=== PATIENT | male | born 1965 | race Caucasian/White ===

== ENCOUNTER 2020-01-11 14:42 | Inpatient (IN) ==
[2020-01-11] MEDS ORDERED: Ondansetron ODT 4 MG TAB.RAPDIS SL ONE (15:05)
[2020-01-11 15:21] LABS: Basophils % 0.5 %; Eosinophils % 0.1 %; Hematocrit 40.4 % (37.5-50.1); Hemoglobin 14.1 g/dL (12.9-16.9); Immature Granulocytes % 0.2 % (0-4); Lymphocytes # 3.1 K/mcL (0.6-4.6); Lymphocytes % 35.3 %; Mean Corpuscular HGB Conc 34.9 g/dL (31.6-35.5); Mean Corpuscular Hemoglobin 28.8 pg (28.0-33.3); Mean Corpuscular Volume 82.6 fL (83.0-100.0); Mean Platelet Volume 9.7 fL (9.4-12.4); Monocytes # 1.1 K/mcL (0.0-1.3); Monocytes % 11.9 %; Neutrophils # 4.6 K/mcL (1.6-8.9); Platelet Count 257 K/mcL (140-400); Red Blood Count 4.89 M/mcL (4.19-5.50); Red Cell Distribution Width 12.2 % (11.5-14.5); White Blood Count 8.8 K/mcL (4.3-11.1)
[2020-01-11 15:50] LABS: Acetaminophen < 10 mcg/mL (10-20); BUN/Creatinine Ratio 15 (6-26); Blood Urea Nitrogen 15 mg/dL (6-20); Calcium 10.1 mg/dL (8.6-10.3); Carbon Dioxide 20 mEq/L (23-29); Chloride 103 mEq/L (98-107); Ethanol < 10 mg/dL (Less than 10); Glucose 110 mg/dL (70-105); Osmolality,Calculated 287 (280-300); Potassium 3.3 mEq/L (3.5-5.1); Salicylate < 2.5 mg/dL (15.0-30.0); Sodium 138 mEq/L (136-145); eGFR For African Americans > 60 (> 60); eGFR For Non-African Americans > 60 (> 60)
[2020-01-11 16:53] LABS: Amphetamine Screen,Urine Negative ng/mL (Cutoff=1000); Barbiturate Screen,Urine Negative ng/mL (Cutoff=200); Benzodiazepines Screen,Urine Positive ng/mL (Cutoff=200); Cannabinoid Screen,Urine Positive ng/mL (Cutoff = 50); Cocaine Screen,Urine Negative ng/mL (Cutoff= 300); Opiate Screen,Urine Negative ng/mL (Cutoff=300); Phencyclidine Screen,Urine Negative ng/mL (Cutoff=25)
[2020-01-11 17:04] LABS: Bacteria,Urine Few per hpf (None-Few); Bilirubin,Urine Negative (Negative); Blood,Urine Small (Negative); Clarity,Urine Clear (Clear); Color,Urine Yellow (Yellow); Glucose,Urine (UA) Normal (Normal); Hyaline Casts,Urine Moderate per lpf (None Seen); Ketones,Urine 40 mg/dL (Negative); Leukocyte Esterase,Urine Negative (Negative); Mucus,Urine Moderate per lpf (None-Few); Nitrite,Urine Negative (Negative); Protein,Urine 30 mg/dL (Neg-Trace); Specific Gravity,Urine 1.025 (1.010-1.025); Transitional Epi Cells,Urine Few per hpf (None-Few); Urobilinogen,Urine Normal (Normal); WBC,Urine 0-3 per hpf (0-3)
[2020-01-11 17:25] LABS: Valproate 26 mcg/mL (50-100)
[2020-01-11] MEDS ORDERED: *HR* LORazepam 1 MG TABLET PO PRN (20:21)
[2020-01-11] MEDS ORDERED: *HR* LORazepam 2 MG/ML VIAL IM PRN (20:21)
[2020-01-11] MEDS ORDERED: hydrOXYzine pamoate 25 MG CAPSULE PO PRN (20:21)
[2020-01-11] MEDS ORDERED: haloperidoL 5 MG TABLET PO PRN (20:21)
[2020-01-11] MEDS ORDERED: Haloperidol Lactate 5 MG/ML VIAL IM PRN (20:21)
[2020-01-11] MEDS ORDERED: QUEtiapine Fumarate 25 MG TABLET PO PRN (20:21)
[2020-01-11] MEDS ORDERED: Ibuprofen 400 MG TABLET PO PRN (20:21)
[2020-01-11] MEDS ORDERED: Divalproex (24 HR) 500 MG TABLET PO SCH (21:00)
[2020-01-11] MEDS: Acetaminophen 325 MG TABLET PO PRN (22:05)
[2020-01-11] MEDS: traZODone 50 MG TABLET PO PRN (22:06)
[2020-01-11] MEDS: diazePAM 5 MG TABLET PO SCH (22:07)
[2020-01-11] MEDS: Venlafaxine XR (24 HR) 75 MG CAP.ER.24H PO SCH (22:07)
[2020-01-11] MEDS: *HR* Rivaroxaban 10 MG TABLET PO SCH (22:56)
[2020-01-11] MEDS: Aspirin 81 MG TAB.CHEW PO SCH (22:56)
[2020-01-11] MEDS: *HR* Metformin 500 MG TABLET PO SCH (22:57)
[2020-01-12] MEDS: *HR* Metformin 500 MG TABLET PO SCH ×2 (09:18→16:56)
[2020-01-12 13:45] LABS: Estimated Average Glucose 126 mg/dl
[2020-01-12 13:51] LABS: Albumin 4.8 g/dL (3.5-5.7); Albumin/Globulin Ratio 1.6 (1.1-2.2); Bilirubin,Direct 0.1 mg/dL (0.0-0.2); Bilirubin,Indirect 0.4 mg/dL (0.0-1.0); Bilirubin,Total 0.5 mg/dL (0.3-1.0); Chol/HDL Ratio 6.8 (0-4.9); Total Protein 7.8 g/dL (6.4-8.9)
[2020-01-12] MEDS: *HR* Rivaroxaban 10 MG TABLET PO SCH (16:57)
[2020-01-12] MEDS: Acetaminophen 325 MG TABLET PO PRN (16:58)
[2020-01-12] MEDS: Aspirin 81 MG TAB.CHEW PO SCH (21:03)
[2020-01-12] MEDS: Divalproex (24 HR) 500 MG TABLET PO SCH (21:04)
[2020-01-12] MEDS: Venlafaxine XR (24 HR) 75 MG CAP.ER.24H PO SCH (21:04)
[2020-01-12] MEDS: traZODone 50 MG TABLET PO PRN (21:05)
[2020-01-12] MEDS: diazePAM 5 MG TABLET PO SCH (21:05)
[2020-01-13] MEDS: Divalproex (24 HR) 500 MG TABLET PO SCH ×2 (09:53→20:11)
[2020-01-13] MEDS: *HR* Metformin 500 MG TABLET PO SCH ×2 (09:53→17:23)
[2020-01-13] MEDS: *HR* Rivaroxaban 10 MG TABLET PO SCH (17:23)
[2020-01-13] MEDS: Aspirin 81 MG TAB.CHEW PO SCH (20:11)
[2020-01-13] MEDS: Venlafaxine XR (24 HR) 75 MG CAP.ER.24H PO SCH (20:11)
[2020-01-13] MEDS: diazePAM 5 MG TABLET PO SCH (20:11)
[2020-01-13] MEDS: traZODone 50 MG TABLET PO PRN (20:11)
[2020-01-14] MEDS: *HR* Metformin 500 MG TABLET PO SCH (08:24)
[2020-01-14] MEDS: Divalproex (24 HR) 500 MG TABLET PO SCH (08:24)
[2020-01-14 09:01] VITALS: BP 116/82
== END 2020-01-14 11:50 | disposition home or self-care (01) | DRG 885 ==
LOC: EMEROOARM 14:42 → 1ANU 14:42
PROVIDERS: ADMIT Psychiatry & Neurology Psychiatry; ATTEND Psychiatry & Neurology Psychiatry

== ENCOUNTER 2020-02-09 09:00 | Observation (INO) ==
[2020-02-09] MEDS ORDERED: Naloxone 0.4 MG/ML INJ IVP PRN (09:27)
[2020-02-09 09:55] LABS: Basophils # 0.1 K/mcL (0.0-0.2); Basophils % 0.9 %; Eosinophils # 0.2 K/mcL (0.0-0.6); Eosinophils % 1.9 %; Hematocrit 38.3 % (37.5-50.1); Hemoglobin 13.3 g/dL (12.9-16.9); Immature Granulocytes % 0.3 % (0-4); Lymphocytes # 3.9 K/mcL (0.6-4.6); Lymphocytes % 42.9 %; Mean Corpuscular HGB Conc 34.7 g/dL (31.6-35.5); Mean Corpuscular Volume 86.5 fL (83.0-100.0); Mean Platelet Volume 9.6 fL (9.4-12.4); Monocytes # 0.8 K/mcL (0.0-1.3); Monocytes % 8.9 %; Neutrophils # 4.1 K/mcL (1.6-8.9); Platelet Count 204 K/mcL (140-400); Red Blood Count 4.43 M/mcL (4.19-5.50); Red Cell Distribution Width 12.1 % (11.5-14.5); Segmented Neutrophils % 45.1 %; White Blood Count 9.1 K/mcL (4.3-11.1)
[2020-02-09 10:16] LABS: BUN/Creatinine Ratio 17 (6-26); Blood Urea Nitrogen 15 mg/dL (6-20); Calcium 9.2 mg/dL (8.6-10.3); Carbon Dioxide 24 mEq/L (23-29); Chloride 104 mEq/L (98-107); Glucose 153 mg/dL (70-105); Osmolality,Calculated 292 (280-300); Potassium 3.5 mEq/L (3.5-5.1); Sodium 139 mEq/L (136-145); eGFR For African Americans > 60 (> 60); eGFR For Non-African Americans > 60 (> 60)
[2020-02-09] MEDS ORDERED: Aminoglycoside Consult 1 EACH MC ONE (11:09)
[2020-02-09 12:04] LABS: Prothrombin Time 11.2 Seconds (9.4-12.1)
[2020-02-09] MEDS ORDERED: Warfarin perPT PO PRN (18:00)
[2020-02-09] MEDS ORDERED: *HR* Warfarin 5 MG TABLET PO ONE (18:00)
[2020-02-09] MEDS: Venlafaxine XR (24 HR) 75 MG CAP.ER.24H PO SCH (21:28)
[2020-02-09] MEDS: diazePAM 5 MG TABLET PO SCH (21:28)
[2020-02-09] MEDS: Divalproex (12 HR) 500 MG TABLET PO SCH (21:28)
[2020-02-10 03:59] LABS: INR 1.1; Prothrombin Time 12.4 Seconds (9.4-12.1)
[2020-02-10] MEDS: *HR* Metformin 500 MG TABLET PO SCH ×2 (09:40→16:53)
[2020-02-10] MEDS: Metoprolol XL (24 HR) Succ 25 MG TAB.ER.24H PO SCH (09:40)
[2020-02-10] MEDS: Divalproex (12 HR) 500 MG TABLET PO SCH ×2 (09:40→21:34)
[2020-02-10] MEDS: Aspirin Enteric Coated 81 MG Tablet PO SCH (09:41)
[2020-02-10] MEDS: diazePAM 5 MG TABLET PO SCH ×2 (09:42→21:34)
[2020-02-10] MEDS ORDERED: *HR* Warfarin 5 MG TABLET PO ONE (18:00)
[2020-02-10] MEDS: Venlafaxine XR (24 HR) 75 MG CAP.ER.24H PO SCH (21:35)
[2020-02-11 05:43] LABS: INR 1.2; Prothrombin Time 13.2 Seconds (9.4-12.1)
[2020-02-11 07:36] VITALS: BP 110/69
[2020-02-11] MEDS: Aspirin Enteric Coated 81 MG Tablet PO SCH (09:30)
[2020-02-11] MEDS: Divalproex (12 HR) 500 MG TABLET PO SCH (09:30)
[2020-02-11] MEDS: Metoprolol XL (24 HR) Succ 25 MG TAB.ER.24H PO SCH (09:30)
[2020-02-11] MEDS: diazePAM 5 MG TABLET PO SCH (09:30)
[2020-02-11] MEDS: *HR* Metformin 500 MG TABLET PO SCH (09:30)
[2020-02-11] MEDS ORDERED: *HR* Warfarin 5 MG TABLET PO ONE (18:00)
[2020-02-11] MEDS ORDERED: *HR* Warfarin 7.5 MG TABLET PO ONE (18:00)
[2020-02-12] MEDS ORDERED: *HR* Warfarin 5 MG TABLET PO SCH (18:00)
== END 2020-02-11 11:10 | disposition home or self-care (01) ==
LOC: 3BNU
PROVIDERS: ADMIT Internal Medicine Clinical Cardiac Electrophysiology; ATTEND Internal Medicine Clinical Cardiac Electrophysiology